=== PATIENT | female | born 1965 | race African-American/Black ===

== ENCOUNTER 2017-02-20 16:42 | Emergency (ER) | payer SELFPAY ==
[~2017-02-20] VITALS: Ht 157.5 cm; Wt 75.7 kg
[2017-02-20 17:17] VITALS: BP 108/69
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
[2017-02-20] MEDS ORDERED: CYCL5TAB PO (18:19)
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
== END 2017-02-20 18:29 | disposition home or self-care (01) ==
LOC: ER 16:42
DX: S16.1XXA Strain of muscle, fascia and tendon at neck level, initial encounter (principal); V49.50XA Passenger injured in collision with unspecified motor vehicles in traffic accident, initial encounter; Y93.89 Activity, other specified; Y99.8 Other external cause status; Y92.488 Other paved roadways as the place of occurrence of the external cause
CPT/HCPCS: 72040; 99284